=== PATIENT | female | born 1990 | race African-American/Black ===

== ENCOUNTER 2017-05-24 21:25 | Emergency (ER) | payer MEDICAID, OTHER ==
[~2017-05-24] VITALS: Ht 167.6 cm; Wt 112.0 kg
[~2017-05-24 21:25] MED LIST: NO MEDS
[2017-05-24 22:22] VITALS: BP 126/98
== END 2017-05-25 02:00 | disposition left against medical advice (07) ==
LOC: ER 21:25
DX: L91.8 Other hypertrophic disorders of the skin (principal); Z53.21 Procedure and treatment not carried out due to patient leaving prior to being seen by health care provider

== ENCOUNTER 2019-08-15 21:27 | Emergency (ER) | payer MEDICAID ==
[~2019-08-15] VITALS: Ht 167.6 cm; Wt 121.0 kg
[2019-08-16 01:22] VITALS: BP 127/76
[2019-08-16 05:51] LABS: CLARITY URINE CLOUDY (CLEAR); COLOR URINE YELLOW (YELLOW); KETONES URINE NEGATIVE (NEGATIVE); LEUKOCYTE ESTERASE URINE 3+ (NEGATIVE); NITRITE URINE NEGATIVE (NEGATIVE); OCCULT BLOOD URINE NEGATIVE (NEGATIVE); PROTEIN URINE NEGATIVE (NEGATIVE); SPECIFIC GRAVITY URINE 1.019 (1.005-1.030); UROBILINOGEN URINE 0.2 E.U./dL (0.2-1.0)
[2019-08-16] MEDS ORDERED: ACETAMINOPHEN 325MG TABLET PO ONE (06:30)
[2019-08-16 06:57] LABS: CHLORIDE 108 mEq/L (98-107)
[2019-08-16 07:04] LABS: BASOPHILS % 0.5 % (0.0-2.0); EOSINOPHILS % 2.2 % (0.0-5.0); HEMATOCRIT. 33.4 % (36.0-48.0); HEMOGLOBIN. 11.2 g/dL (12.0-16.0); LYMPHOCYTES % 20.2 % (20.0-50.0); MEAN CORPUSCULAR HEMOGLOBIN 27.6 pg (28.0-32.0); MEAN CORPUSCULAR VOLUME 82.3 fL (81.0-99.0); MONOCYTES % 6.2 % (2.0-8.0); NEUTROPHILS % 70.9 % (40.0-76.0); PLATELET 405 x1000/uL (130-400); RED BLOOD CELL COUNT 4.05 mill/uL (4.2-5.4); RED CELL DISTRIBUTION WIDTH 14.7 % (11.6-14.6)
[2019-08-16 07:38] LABS: B-HCG QUANTITATIVE 138120 mIU/mL (<3)
== END 2019-08-16 08:20 | disposition home or self-care (01) ==
LOC: ER 21:27
DX: O20.0 Threatened abortion (principal); Z3A.09 9 weeks gestation of pregnancy; O23.41 Unspecified infection of urinary tract in pregnancy, first trimester
CPT/HCPCS: 36415; 76801; 81003; 81025; 84702; 86850; 86900; 99284

== ENCOUNTER 2019-08-25 18:42 | Emergency (ER) | payer MEDICAID ==
[~2019-08-25] VITALS: Ht 167.6 cm; Wt 120.0 kg
[2019-08-25 19:31] VITALS: BP 134/84
== END 2019-08-25 22:50 | disposition left against medical advice (07) ==
LOC: ER 18:58
DX: Z53.21 Procedure and treatment not carried out due to patient leaving prior to being seen by health care provider (principal)

== ENCOUNTER 2019-08-25 23:37 | Emergency (ER) | payer MEDICAID ==
[~2019-08-25] VITALS: Ht 167.6 cm; Wt 120.0 kg
[2019-08-26 01:05] LABS: BASOPHILS % 0.6 % (0.0-2.0); EOSINOPHILS % 2.2 % (0.0-5.0); HEMATOCRIT. 35.6 % (36.0-48.0); LYMPHOCYTES % 26.2 % (20.0-50.0); MEAN CORPUSCULAR HEMOGLOBIN 27.7 pg (28.0-32.0); MEAN CORPUSCULAR VOLUME 82.2 fL (81.0-99.0); MONOCYTES % 5.2 % (2.0-8.0); NEUTROPHILS % 65.8 % (40.0-76.0); PLATELET 437 x1000/uL (130-400); RED BLOOD CELL COUNT 4.33 mill/uL (4.2-5.4); RED CELL DISTRIBUTION WIDTH 14.4 % (11.6-14.6)
[2019-08-26 01:17] LABS: CHLORIDE 107 mEq/L (98-107)
[2019-08-26 01:41] LABS: B-HCG QUANTITATIVE 137565 mIU/mL (<3)
[2019-08-26 04:58] LABS: CLARITY URINE CLOUDY (CLEAR); COLOR URINE YELLOW (YELLOW); KETONES URINE NEGATIVE (NEGATIVE); LEUKOCYTE ESTERASE URINE 1+ (NEGATIVE); NITRITE URINE NEGATIVE (NEGATIVE); OCCULT BLOOD URINE 3+ (NEGATIVE); PROTEIN URINE NEGATIVE (NEGATIVE); SPECIFIC GRAVITY URINE 1.028 (1.005-1.030)
[2019-08-26 07:25] VITALS: BP 120/70
== END 2019-08-26 07:26 | disposition home or self-care (01) ==
LOC: ER 23:37
DX: O20.0 Threatened abortion (principal); O23.41 Unspecified infection of urinary tract in pregnancy, first trimester; R11.0 Nausea; Z98.890 Other specified postprocedural states; Z3A.09 9 weeks gestation of pregnancy
CPT/HCPCS: 36415; 76801; 81003; 81025; 84702; 86850; 86900; 99284